=== PATIENT | female | born 1990 | race Caucasian/White ===

== ENCOUNTER 2017-09-16 17:04 | Observation (INO) | payer BC ==
[~2017-09-16] VITALS: Ht 172.7 cm; Wt 69.0 kg
[2017-09-16] MEDS ORDERED: LEXAPRO20 MG PO (17:10)
[2017-09-16] MEDS ORDERED: INDERAL 20MG20 MG PO (17:11)
[2017-09-16 17:54] LABS: COLLECTION METHOD CLEAN CATCH
[2017-09-16 18:03] LABS: MUCOUS Present /lpf; PH 7 (5-8); URINE APPEARANCE Hazy; URINE BACTERIA None Seen /hpf; URINE BILIRUBIN Negative (NEGATIVE); URINE BLOOD 2+ (NEGATIVE); URINE COLOR Yellow; URINE GLUCOSE Negative (NEGATIVE); URINE KETONE Negative (NEGATIVE); URINE LEUKOCYTE ESTERASE Negative (NEGATIVE); URINE PROTEIN(semi-quant) Negative (NEGATIVE); URINE UROBILINOGEN Negative (NEGATIVE); URINE WBC None Seen /hpf
[2017-09-16 18:25] LABS: D-DIMER < 200.00 ng/mLDDu (200-230)
[2017-09-16 18:37] LABS: TROPONIN-I 1.61 ng/mL (0.000-0.034)
[2017-09-16 19:21] LABS: BASO # 0.1 (0.0-0.2); BASO % 0.7 % (0.0-2.0); EOS % 0.1 % (0-4.0); GRAN % 72.5 % (42.2-75.2); HEMATOCRIT 43.8 % (37.0-47.0); HEMOGLOBIN 14.1 g/dl (12.5-16.0); LYMPH # 1.9 (1.2-3.4); LYMPH % 19.2 % (20.0-51.0); MEAN CELL VOLUME 86 fl (80.0-100.0); MEAN CORPUSCULAR HEMOGLOBIN 28 pg (27.0-31.0); MEAN CORPUSCULAR HGB CONC 32 g/dl (33.0-37.0); MEAN PLATELET VOLUME 8.4 fl (7.4-10.4); MONO # 0.7 (0.1-0.6); MONO % 7.2 % (1.7-9.3); PLATELET COUNT 270 K/mm3 (130-400); RED BLOOD COUNT 5.12 M/mm3 (4.10-5.30); WHITE BLOOD COUNT 9.7 K/mm3 (4.8-10.8)
[2017-09-16 19:26] LABS: ADJUSTED CALCIUM 9.3 mg/dL (8.4-10.2); ALBUMIN 4.3 gm/dL (3.5-5.0); BILIRUBIN,TOTAL 0.6 mg/dL (0.0-1.0); CALCIUM 9.5 mg/dL (8.4-10.2); CREATININE, serum 0.89 mg/dL (0.52-1.25); POTASSIUM 3.6 mmol/L (3.4-5.0); TOTAL PROTEIN 7.6 gm/dL (6.4-8.2)
[2017-09-16 19:28] LABS: INR 1.1 (0.8-3.0); PROTHROMBIN TIME 12.1 SECONDS (9.7-12.8)
[2017-09-16 19:31] LABS: AMPHETAMINE URINE NEGATIVE; BARBITURATES URINE NEGATIVE; BENZODIAZEPINES URINE NEGATIVE; BUPRENORPHINE URINE NEGATIVE; METHADONE URINE NEGATIVE; OPIATES URINE NEGATIVE; OXYCODONE URINE NEGATIVE; PHENCYCLIDINE URINE NEGATIVE; PROPOXYPHENE URINE NEGATIVE; THC CANNABINOIDS URINE POSITIVE; TRICYCLIC ANTIDEPRESS URINE NEGATIVE
[2017-09-16 19:31] LABS: PARTIAL THROMBOPLASTIN TIME 26.1 SECONDS (26.0-37.0)
[2017-09-16 22:35] VITALS: BP 109/81; PULSE 72; TEMP 98.5
[2017-09-17 01:23] VITALS: BP 93/51; PULSE 65; TEMP 98.6
[2017-09-17 03:40] VITALS: BP 92/65; PULSE 55; TEMP 98.5
[2017-09-17 07:34] LABS: TROPONIN-I 3.94 ng/mL (0.000-0.034)
[2017-09-17 07:57] VITALS: BP 105/60; PULSE 82; TEMP 97.8
[2017-09-17 11:29] VITALS: BP 107/71; PULSE 74; TEMP 97.4
[2017-09-17] MEDS ORDERED: ASPIRIN 81M81 MG/TA2 PO (15:02)
[2017-09-17] MEDS ORDERED: NITROSTAT0.4 MG/TAB SL (15:03)
[2017-09-17 15:05] LABS: THYROID STIMULATING HORMONE 3.78 uIU/mL (0.465-4.680)
[2017-09-17] MEDS ORDERED: PLAVIX 75MG TAB75 MG PO (15:07)
== END 2017-09-17 16:14 | disposition home or self-care (01) ==
LOC: COL.ER 17:04 → MEDICAL 19:18
PROVIDERS: Emergency Medicine; Physician Assistant
DX: I21.4 Non-ST elevation (NSTEMI) myocardial infarction (principal); F12.980 Cannabis use, unspecified with anxiety disorder